=== PATIENT | male | born 1935 | race Caucasian/White ===

== ENCOUNTER → 2020-08-27 | Outpatient (CLI) | payer OTHER ==
[~2020-08-27] VITALS: Ht 185.4 cm; Wt 111.1 kg
[~2020-08-27] MED LIST: ALLEGRA ALLERG180 MG PO; ASA81BEC PO; CARVEDILOL12.5 MG PO; CENTRUM SILVER1 EAC7 PO; FISH OIL 1,0001 EAC9 PO; FUROSEMIDE 20 M20 MG PO; NEURONTIN100 MG PO; NIACIN500 MG PO; ROSUVASTATIN CA20 MG PO; TURMERIC500 M2 PO; VITAMIN D325 MC3 PO
--- NOTE | 2020-08-29 18:07 | PATH ---
[facility] [address] [place] [address] PATHOLOGY RPT PROCEDURE Name: MELISSA SPENCER Room #: REG [facility]..#: [id number] Admission: 08/27/20 Date of : 39 Discharge: Report #: [id number] Path Case #: [id number] [facility] Accession Number: [id number] . 01 Material submitted: . sigmoid colon - SIGMOID COLON POLYP . 01 Clinical history: . HX OF POLYPS AND COLOGAURD . 02 Diagnosis: Polyp, sigmoid colon polyp, endoscopic biopsy: - Tubular adenoma. - Negative for high grade dysplasia. . (IUV:mml; 08/29/2020) QL 08/29/2020 1204 Local . 02 Electronically signed: . Mary Galan MD, Pathologist NPI- [id number] . 01 Gross description: . The specimen is received in formalin, labeled "Schons, Melissa, sigmoid colon polyp". Received is a segment of light carmen to dark brown tissue measuring 0.6 x 0.5 x 0.4 cm in greatest dimensions. The surgical margin is inked. The specimen is sectioned into 2 pieces and entirely submitted in cassette A1.([facility]; 08/28/2020) [facility] 08/28/2020 1523 Local . 02 Pathologist provided ICD-10: D12.5 . 02 CPT . 383062 Specimen Comment: A courtesy copy of this report has been sent to [phone], [phone] Specimen Comment: [phone] Specimen Comment: Report sent to / DR ELMORE Performed at: [address] [id number] MD Ariel Ashton MD Phone: [phone] Performed at: [address] [id number] [address] [address] PATHOLOGY RPT PROCEDURE Name: MELISSA SPENCER SHERRI Room #: REG [facility] Ferraro#: [id number] Admission: 08/27/20 Date of : 39 Discharge: Report #: [id number] Path Case #: [id number] MD Mary Galan MD Phone: [phone]
== END | disposition home or self-care (01) ==
LOC: GI 08:29
PROVIDERS: ATTEND Internal Medicine Gastroenterology
DX: R19.5 Other fecal abnormalities (principal); D12.5 Benign neoplasm of sigmoid colon; K57.30 Diverticulosis of large intestine without perforation or abscess without bleeding; K64.8 Other hemorrhoids; I10 Essential (primary) hypertension; E78.00 Pure hypercholesterolemia, unspecified; I48.91 Unspecified atrial fibrillation; Z86.010 Personal history of colon polyps; Z98.890 Other specified postprocedural states; Z79.899 Other long term (current) drug therapy; Z87.891 Personal history of nicotine dependence; Z85.46 Personal history of malignant neoplasm of prostate; Z96.652 Presence of left artificial knee joint; Z95.1 Presence of aortocoronary bypass graft; Z95.0 Presence of cardiac pacemaker; Z79.01 Long term (current) use of anticoagulants; Z88.8 Allergy status to other drugs, medicaments and biological substances
CPT/HCPCS: 62110; 62900